=== PATIENT | female | born 1990 | race Caucasian/White ===

== ENCOUNTER 2019-03-23 08:10 | Inpatient (IN) | payer OTHER, SELFPAY ==
[2019-03-23 10:48] VITALS: BMI 43.6
--- NOTE | 2019-03-23 11:17 | ULT ---
[facility] History: Evaluate fetus Comparison: None. Findings: Real-time grayscale and color and spectral analysis of the gravid uterus was performed. Single viable intrauterine with average ultrasound age 40 week 1 day. Estimated weight is 10 lbs. 12 oz., 99th percentile. Amniotic fluid index: 8 cm heart rate: 139 cm position is vertex and the placenta is anterior. Testicular hydrocele is present. Bilateral fet al hydronephrosis. Impression: 1. High-grade bilateral hydronephrosis. 2. Testicular hydrocele. 3. Amniotic fluid index of 8 cm 4. Anterior/fundal placenta.
[2019-03-23] MEDS ORDERED: Butorphanol Tartrate 1 MG/ML VIAL SLOW IVP PRN (12:35)
[2019-03-23] MEDS ORDERED: Ondansetron PF 4 MG/2 ML Vial IVP PRN (12:35)
[2019-03-23] MEDS ORDERED: hydrALAZINE 20 MG/ML VIAL SLOW IVP PRN (12:35)
[2019-03-23] MEDS ORDERED: Ibuprofen 800 MG TAB PO PRN (12:35)
[2019-03-23] MEDS ORDERED: NS / Oxytocin 40 units/1000ml 1,000 ML IV PRN (12:35)
[2019-03-23] MEDS ORDERED: Lidocaine 1% (PF) 30 ML VIAL SC PRN (12:35)
[2019-03-23] MEDS ORDERED: Lactated Ringer's 1,000 ML IV SCH (12:45)
[2019-03-23 13:18] LABS: Hemoglobin 12.8 g/dL (12.0-16.0); Mean Corpuscular HGB CONC 34.3 g/dL (32.0-36.0); Mean Corpuscular Hemoglobin 29.6 pg (27.0-31.0); Mean Corpuscular Volume 86.1 fL (78.0-98.0); Mean Platelet Volume 9.3 fL (7.4-10.4); Platelet Count 228 thou/uL (130-400); Red Blood Cell (RBC) Count 4.34 mill/uL (4.20-5.40); White Blood Cell (WBC) Count 9.1 thou/uL (4.8-10.8)
[2019-03-23 14:10] LABS: Syphilis Antibody Nonreactive (Nonreactive); Syphilis Antibody Index 0.03 S/CO (<1.00 Non-Reactive)
[2019-03-23 14:11] LABS: HBSAg Index 0.18 S/CO (0-0.99); Hep B Surf Ag Non-Reactive S/CO (NonReactive)
[2019-03-23] MEDS: NS w/ Oxytocin 10 units 500 ML IV SCH (15:09)
[2019-03-23] MEDS: Lactated Ringer's 1,000 ML IV SCH (19:44)
[2019-03-24] MEDS ORDERED: Fentanyl 4 mcg/Bup 0.1% Cadd 100 ML ONE (02:03)
[2019-03-24] MEDS: Lactated Ringer's 1,000 ML IV SCH ×4 (03:00→20:35)
[2019-03-24] MEDS ORDERED: diphenhydrAMINE 50 MG/ML VIAL IVP PRN ×2 (03:21→11:40)
[2019-03-24] MEDS ORDERED: Promethazine HCl 25 MG/ML VIAL IM PRN ×2 (03:21→11:40)
[2019-03-24] MEDS ORDERED: Lactated Ringer's 500 ML IV PRN (03:21)
[2019-03-24] MEDS ORDERED: Ondansetron PF 4 MG/2 ML Vial IVP PRN ×2 (03:21→11:40)
[2019-03-24] MEDS ORDERED: Acetaminophen 325 MG TAB PO PRN (03:21)
[2019-03-24] MEDS ORDERED: ePHEDrine/0.9% NaCl/PF SYRINGE 50 mg/10 ml SLOW IVP PRN (03:21)
[2019-03-24] MEDS ORDERED: Naloxone HCl 0.4 mg/ml Vial IVP PRN ×4 (03:21→11:40)
[2019-03-24] MEDS ORDERED: Fentanyl 4 mcg/Bupivacaine 0.1% Cassette 100 ML EPIDURAL SCH (03:30)
[2019-03-24] MEDS ORDERED: Communication Order-Pharmacy FS SCH ×2 (03:30→11:45)
[2019-03-24] MEDS: NS w/ Oxytocin 10 units 500 ML IV SCH (04:33)
--- NOTE | 2019-03-24 07:47 | PRG ---
DATE OF SERVICE: 03/24/2019 The patient is a 28-year-old female, presenting to Labor and Delivery yesterday at 42 weeks gestation. Her OB care had been at the [facility] with Ms. Lewis Hill. After evaluation, the patient opted for decline primary due to estimated weight at 10 pounds 12 ounces and opted for elective induction of labor. Her labor course through the night was complicated by cutting back at the Pitocin and likely no adequacy from 11 o'clock forward. This morning, IUPC was placed. The patient has been unchanged all night long at about 5 cm, 80% effaced, and -2 station. Again, IUPC was placed and MVUs were about 1 to 40. The patient does have an epidural now and plan has been discussed with her given the size of this baby and the risk for arrest that we will be managing for adequacy of contractions and then looking for arrest of labor. The patient is agreeable to the once the rest has been proven. Dr. Oscar will be the oncoming physician and will be likely making these management decisions. Job ID: [id number]
[2019-03-24] MEDS ORDERED: Bicitra 30 ML UDCUP PO SCH (09:30)
[2019-03-24] MEDS ORDERED: Azithromycin 500 MG in Sodium Chloride 0.9% 250 ML 250 ML IVPB SCH (09:30)
[2019-03-24] MEDS ORDERED: CEFAZOLIN 2 GM in Premix Bag 1 BAG IVPB SCH (09:30)
[2019-03-24] MEDS ORDERED: Bicitra 30 ML UDCUP ONE (09:32)
--- NOTE | 2019-03-24 09:36 | PDOC.LDPN ---
Labor & Delivery Progress Note - Subjective Subjective: comfortable - Objective Vital signs reviewed and normal: yes General: NAD Uterine fundus: non tender Dilation: 6 Effacement: 75% Station: -1 FHT: category 1 [place] contractions every: 2min, MVU < 200 -: Discussed arrest of dilatation at 6cm for last 8hr without adequate uterine contractions. Offered pt rest with restarting pitocin and additional 2 hours vs decision for primary CS now due to AOD. Pt desires PCS after discussion of risks and benefits.
[2019-03-24] MEDS ORDERED: Ketorolac Tromethamine 30 MG/ML VIAL ONE (10:17)
[2019-03-24] MEDS ORDERED: PHENYLEPHRINE-NS 100 MCG/ML 10 ML SYRINGE ONE (10:17)
[2019-03-24] MEDS ORDERED: Oxytocin 10 UNITS/ML VIAL ONE ×2 (10:17→11:10)
[2019-03-24] MEDS ORDERED: Ondansetron PF 4 MG/2 ML Vial ONE (10:17)
[2019-03-24] MEDS ORDERED: Lidocaine 2% MPF 10 ML AMP (For Epidural Use) ONE (10:17)
[2019-03-24] MEDS ORDERED: ePHEDrine/0.9% NaCl/PF SYRINGE 50 mg/10 ml ONE (10:17)
[2019-03-24] MEDS ORDERED: MORPHINE 5 MG/10 ML PF VIAL ONE (10:22)
[2019-03-24] MEDS ORDERED: Methylergonovine 0.2 MG/ML VIAL ONE (11:07)
[2019-03-24] MEDS ORDERED: Bupivacaine HCl 0.25%/Epi 0.0005/PF 10 ML VIAL FS ONE (11:11)
[2019-03-24] MEDS ORDERED: Midazolam HCl 2 mg/2 ml Vial ONE (11:18)
[2019-03-24] MEDS ORDERED: Promethazine HCl 25 MG SUPP PR PRN (11:40)
[2019-03-24] MEDS ORDERED: Meperidine HCl/PF 25 MG/ML VIAL SLOW IVP PRN (11:40)
[2019-03-24] MEDS ORDERED: L&D-Morphine 4 MG/ML VIAL SLOW IVP PRN (11:40)
[2019-03-24] MEDS ORDERED: Naloxone HCl 0.4 mg/ml Vial IV PRN (11:40)
[2019-03-24] MEDS ORDERED: Ondansetron HCl/PF 4 MG/2 ML Vial IVP PRN (11:40)
[2019-03-24] MEDS ORDERED: HYDROmorphone 2 MG/ML VIAL SLOW IVP PRN (11:40)
[2019-03-24] MEDS ORDERED: Ketorolac Tromethamine 30 MG/ML VIAL IVP SCH (11:45)
[2019-03-24] MEDS ORDERED: Bupivacaine 0.25% HCL 30 ML VIAL ONE (11:54)
--- NOTE | 2019-03-24 12:28 | PDOC.OPDEL ---
OB Operative/Delivery Note Delivery Dr/Surgeon: Reginaldo Chauhan Pre-Delivery Diagnosis: other (arrest of dilation) Procedure/Post Delivery Dx: primary low transverse CS Weeks gestation: 42 Anesthesia: epidural - Additional Findings/Plan Placenta delivered: manual removal Repaired Obstetrical Laceration: none findings: low transverse hysterotomy without extension Compilations/Other Findings: Procedure Note Date of Procedure: 03/24/19 Resident Surgeon: Veronica Hair, PGY2 Attending Surgeon: Dr. Oscar Procedure: Primary low transverse caesarean section for arrest of dilatoin Preoperative Diagnosis: 1)Term intrauterine 2)Arrest of dilation Postoperative Diagnosis: 1)Term IUP, delivered 2)s/p pLTCS for arrest of dilation 3) hemorrhage Anesthesia: spinal Indications: The patient is a 28 year old female at 42 weeks gestation who underwent primary LTCS due to arrest of dilatation Procedure in Detail: After risks, benefits, and alternatives were explained to the patient, she gave informed consent. Pre-operative antibiotics included Cefazolin 2 gram IV and 500mg azithromycin. The patient was taken to the operating room and spinal anesthesia was initiated. She was placed in the supine position with a left tilt and prepped and draped in usual sterile fashion. A Pfannenstiel incision was made with a scalpel and carried down to the level of the fascia which was sharply nicked. The fascial cut was extended bilaterally with Mojica sissors. The inferior and superior edges of the cut fascial edges were elevated with Amy clamps and the underlying rectus muscles was sharply blunted and dissected free. The recti were divided digitally and retracted manually. The peritoneum was entered bluntly and retracted manually. Bladder flap was created with Metzenbaum scissors. A low transverse score was made with the scalpel and the uterus was entered in the midline with the scalpel. Clear fluid was seen. The hysterotomy was extended manually. The was noted to be vertex and was easily delivered by fundal pressure. Mouth and nares were bulb suctioned. Cord clamped and cut after one minute and grossly normal male was handed to yuliana team. Cord blood was obtained. Umbilical cord was avulsed so placenta was manually extracted, found to be intact and discarded. The uterus was externalized and the endometrium was curetted with a dry lap. The uterus initally boggy with some bleeding, methergine was administered. The uterus was internalized and closed with a running locking 0-monocryl suture followed by a horizontal mattress imbricating layer. Following this hemostasis was noted. The fascia was closed with a running non-locking PDS suture. The subcutaneous tissue was irrigated and there were no bleeders. The subtaneous layer was then closed in a running non-locking fashion with a 3-0 vicryl. The skin was approximated with monocryl in subcuticular fashion and dermabond applied. All counts were correct. The patient tolerated the procedure well and was taken to the recovery room in stable condition. Estimated Blood Loss: 1230mL Complications: None Specimens: Cord blood sent to lab for blood type Findings: Grossly normal male with Apgars of 8 and 9. Grossly normal placenta with 3 vessel cord discarded. Drains: Farnsworth to gravity draining clear urine Post delivery plan: routine recovery Addendum - Attending - Attending Attestation Date/Time: 03/29/19 [id number] I personally evaluated the patient and discussed the management with Dr. Hair I agree with the History, Examination, Assessment and Plan documented above with any addition or exceptions noted below.
[2019-03-24] MEDS ORDERED: Methylergonovine 0.2 MG/ML VIAL IVP SCH (13:00)
[2019-03-24] MEDS ORDERED: hydrALAZINE 20 MG/ML VIAL SLOW IVP PRN (13:38)
--- NOTE | 2019-03-24 16:07 | PDOC.EVN ---
Event Note - Event Note Event Note: 4 hours post op C/S note delivered via pLTCS at 1102AM on 03/24/19 S: Overall feels well. No nausea. Mild pain at incisional site that has been improved with toradol VS: T97.9, 135/68, 107bpm, RR18 O2 95% (RA) UO: 400cc/4hours PE: Resting, NAD, some bad pain with minimal palpation. Extremities with no edema Continue routine care. Pain control. ADAT.
[2019-03-24] MEDS ORDERED: Sodium Chloride 0.9% 10 ML ONE (22:20)
[2019-03-24] MEDS: Ketorolac Tromethamine 30 MG/ML VIAL IVP PRN (22:43)
[2019-03-25] MEDS ORDERED: Sodium Chloride 0.9% 10 ML ONE ×2 (00:12→03:33)
[2019-03-25 03:22] LABS: Hemoglobin 12.2 g/dL (12.0-16.0); Mean Corpuscular HGB CONC 34.5 g/dL (32.0-36.0); Mean Corpuscular Hemoglobin 30.1 pg (27.0-31.0); Mean Corpuscular Volume 87.2 fL (78.0-98.0); Mean Platelet Volume 9.5 fL (7.4-10.4); Platelet Count 164 thou/uL (130-400); RBC Distribution Width 13.3 % (11.5-14.5); Red Blood Cell (RBC) Count 4.04 mill/uL (4.20-5.40); White Blood Cell (WBC) Count 16.5 thou/uL (4.8-10.8)
[2019-03-25] MEDS: Ketorolac Tromethamine 30 MG/ML VIAL IVP PRN (03:36)
--- NOTE | 2019-03-25 06:53 | PRG ---
DATE OF SERVICE: 03/25/2019 TIME OF SERVICE: 0615 hours. SUBJECTIVE: The patient is postoperative day #0 to 1, now approximately 19 hours status post delivery. The patient received a delivery for macrosomia and arrest of labor. The patient and are doing well. She has no complaints and is breast-feeding in the room at the time of exam. OBJECTIVE: VITAL SIGNS: Temperature 98.7, pulse 110. T-max is 99.4, max pulse 114, blood pressure 131/73, respirations 20. HEENT: Within normal limits. LUNGS: Clear to auscultation bilaterally. HEART: Regular rate and rhythm. ABDOMEN: Soft and nontender. Incision intact and dry. EXTREMITIES: Without clubbing or cyanosis with moderate edema. LABORATORY DATA: Hematocrit went from 37% to 35% postoperatively. White count is slightly elevated at 16.5. IMPRESSION: Postoperative day #0 to 1, status post section at 42 weeks with macrosomia and arrest of the labor. Mild tachycardia noted with normal hematocrit. PLAN: Routine postoperative care. The patient may be eligible for discharge in p.m. on 03/26 versus discharge on 03/27. Job ID: [id number]
[2019-03-25] MEDS ORDERED: Adacel (T-DAP) 0.5 ML SYRINGE IM ONE (13:38)
[2019-03-25] MEDS: HYDROcodone/Acetaminophen 5/325 mg Tablet PO PRN ×2 (15:33→18:40)
[2019-03-25] MEDS: Simethicone Chewable 80 MG TAB PO PRN ×3 (15:34→22:59)
[2019-03-25] MEDS: Docusate Calcium (SURFAK) 240 MG CAP PO SCH (15:35)
[2019-03-25] MEDS: Lactated Ringer's 1,000 ML IV SCH ×2 (15:37→22:58)
[2019-03-25] MEDS: NS w/ Oxytocin 10 units 500 ML IV SCH (19:49)
[2019-03-26] MEDS: HYDROcodone/Acetaminophen 5/325 mg Tablet PO PRN ×4 (02:45→20:02)
[2019-03-26] MEDS: Lactated Ringer's 1,000 ML IV SCH ×3 (05:28→20:03)
--- NOTE | 2019-03-26 06:49 | PDOC.PP ---
Post Progress Note Post Day #: POD2 Subjective: Resting, denies dizziness or NGUYEN. PO intake tolerated: yes Flatus: yes Ambulation: yes Vital Signs (12 hours) Temp Pulse Resp BP Pulse Ox 03/26/19 05:23 98.6 F 104 H 125/60 03/26/19 01:50 97.7 F 109 H 20 128/73 03/25/19 20:45 97.7 F 101 H 18 121/67 98 Weight Weight 118.841 kg - Physical Examination General: NAD Respiratory: non-labored breathing Abdominal: no distention Skin: CS incision dry & intact Psychiatric: normal affect Result Diagrams: 03/25/19 03:13 Additional Labs: Post Labs Blood Type A POSITIVE 03/23/19 14:13 Hep Bs Antigen Non-Reactive S/CO (NonReactive) 03/23/19 13:09 - Assessment/Plan Stable s/p 1* C/S. Persistant mild tachycardia with stable H/H, afebrile. Repeat CBC this AM, anticipate possible DC late this PM or in AM 03/27.
[2019-03-26 08:28] LABS: #Eosinphils 0.3 thou/uL (0.0-0.7); #Lymphocytes 1.6 thou/uL (1.20-3.40); #Monocytes 1.2 thou/uL (0.11-0.59); #Neutrophils 10.2 thou/uL (1.40-6.50); %Basophils 0.4 % (0.0-1.0); %Eosinophils 2.2 % (0.0-10.0); %Lymphocytes 12.2 % (21.0-51.0); %Monocytes 8.8 % (0.0-10.0); %Neutrophils 76.5 % (42.0-75.0); Hemoglobin 10.6 g/dL (12.0-16.0); Mean Corpuscular HGB CONC 34.1 g/dL (32.0-36.0); Mean Corpuscular Hemoglobin 29.9 pg (27.0-31.0); Mean Corpuscular Volume 87.9 fL (78.0-98.0); Mean Platelet Volume 9.1 fL (7.4-10.4); Platelet Count 190 thou/uL (130-400); RBC Distribution Width 13.1 % (11.5-14.5); Red Blood Cell (RBC) Count 3.55 mill/uL (4.20-5.40); White Blood Cell (WBC) Count 13.3 thou/uL (4.8-10.8)
[2019-03-26] MEDS: Docusate Calcium (SURFAK) 240 MG CAP PO SCH ×2 (08:51→20:02)
[2019-03-26] MEDS: Simethicone Chewable 80 MG TAB PO PRN (08:52)
[2019-03-26] MEDS ORDERED: Bisacodyl 10 MG SUPP PR PRN (14:37)
[2019-03-27] MEDS: HYDROcodone/Acetaminophen 5/325 mg Tablet PO PRN (01:18)
[2019-03-27] MEDS: Lactated Ringer's 1,000 ML IV SCH (06:35)
[2019-03-27] MEDS: Docusate Calcium (SURFAK) 240 MG CAP PO SCH (10:19)
[2019-03-27 12:03] VITALS: BP 145/87; TEMP 98.3
--- NOTE | 2019-03-27 13:42 | DIS ---
DATE OF ADMISSION: 03/23/2019 DATE OF DISCHARGE: 03/27/2019 ADMITTING DIAGNOSES: 1. Postdates gestation at 42 weeks. 2. Macrosomic baby at estimated weight of 10 pounds and 12 ounces or 14 ounces. 3. Desired induction of labor. DISCHARGE DIAGNOSES: 1. Arrest of labor. 2. Primary section. CONSULTATIONS: None. HOSPITAL COURSE: The patient is a 28-year-old female, who presented to Labor and Delivery with her nurse crate liner, Arslan Cobos, at 42 weeks' gestation for evaluation. After evaluation, noting that the patient's baby's estimated weight at 10 pounds and 14 ounces with a grade 3 placenta and unproven pelvis, primary was recommended. Other options include induction of labor with Pitocin or Cytotec. The patient declined primary section and opted for induction with Farnsworth bulb and Pitocin. The patient's labor course resulted in arrest of labor and a primary . For complete details, please refer to the operative note. Her postoperative course has been uncomplicated. She is now postoperative day 3. The patient today reports she is tolerating a diet, is ambulating, voiding on her own, has good pain control. PHYSICAL EXAMINATION: VITAL SIGNS: Most recent vital signs shows blood pressure of 122/67, temperature 98.4, pulse of 107, respiratory rate of 20, and saturating 99% on room air. GENERAL: She appears to be in no acute distress. She is alert and oriented, cooperative and pleasant to interact with. HEENT: Head is normocephalic, atraumatic. ABDOMEN: Fundus is firm. Incision is clean, dry, and intact. EXTREMITIES: Have symmetrical edema. DISCHARGE INSTRUCTIONS: The patient is being discharged to home. She has instructions to refrain from driving for 2 weeks. To limit her lifting at 15 pounds for the next 4 to 6 weeks. To follow up with her Arslan Papito in the next week to 2 weeks for incision check. If Ms. Arslan Weeks is uncomfortable with a postoperative evaluation, she can see [facility] within 2 weeks for an incision check. She will be discharged home on ibuprofen and tramadol for pain control. Job ID: [id number] [facility]
== END 2019-03-27 12:25 | disposition home or self-care (01) | DRG 787 ==
LOC: L&D/OP 08:10 → L&D 12:30 → 3SW 03-24 14:20
PROVIDERS: ADMIT Obstetrics & Gynecology; ATTEND Obstetrics & Gynecology
PROC: 10D00Z1 Extraction of Products of Conception, Low, Open Approach (ICD-10-PCS; principal; 2019-03-24)
PROC: 3E0P7VZ Introduction of Hormone into Female Reproductive, Via Natural or Artificial Opening (ICD-10-PCS; 2019-03-24)
PROC: 3E033VJ Introduction of Other Hormone into Peripheral Vein, Percutaneous Approach (ICD-10-PCS; 2019-03-24)
PROC: 10907ZC Drainage of Amniotic Fluid, Therapeutic from Products of Conception, Via Natural or Artificial Opening (ICD-10-PCS; 2019-03-24)
DX: O48.0 Post-term pregnancy (principal); O72.1 Other immediate postpartum hemorrhage; O36.63X0 Maternal care for excessive fetal growth, third trimester, not applicable or unspecified; O62.0 Primary inadequate contractions; R00.0 Tachycardia, unspecified; O99.89 Other specified diseases and conditions complicating pregnancy, childbirth and the puerperium; O61.0 Failed medical induction of labor; Z3A.42 42 weeks gestation of pregnancy; Z37.0 Single live birth; O69.89X0 Labor and delivery complicated by other cord complications, not applicable or unspecified
CPT/HCPCS: 36415; 76815; 85025; 85027; 86780; 86850; 86900; 86901; 87340; C1726; J0690; J1885; J2001; J2210; J2250; J2274; J2405; J2590; S0020